=== PATIENT | male | born 1985 | race Caucasian/White ===

== ENCOUNTER 2021-03-16 19:45 | Inpatient (IN) | payer SELFPAY ==
[2021-03-22 05:24] VITALS: BMI 38.2
[2021-03-25 16:42] VITALS: BP 133/87; TEMP 98
== END 2021-03-25 15:23 | disposition home health service (06) | DRG 177 ==
LOC: ERS 19:45 → ERHOLD 23:53 → T4-B 03-17 00:24 → CCU 03-19 11:36 → T4-A 03-23 16:23
PROVIDERS: ADMIT Internal Medicine; ATTEND Internal Medicine
PROC: 8E0ZXY6 Isolation (ICD-10-PCS; principal; 2021-03-16)
PROC: XW033E5 Introduction of Remdesivir Anti-infective into Peripheral Vein, Percutaneous Approach, New Technology Group 5 (ICD-10-PCS; 2021-03-17)
DX: U07.1 COVID-19 (principal); J12.82 Pneumonia due to coronavirus disease 2019; J96.01 Acute respiratory failure with hypoxia; I48.20 Chronic atrial fibrillation, unspecified; E66.9 Obesity, unspecified; Z79.01 Long term (current) use of anticoagulants; Z79.899 Other long term (current) drug therapy; Z68.38 Body mass index [BMI] 38.0-38.9, adult
CPT/HCPCS: 36415; 71045; 71275; 80048; 80053; 80076; 81003; 82728; 84439; 84443; 84481; 85025; 85379; 86140; 93970; 96372; 96374; C9113; J0696; J1100; J1650; J1885; J2930; J3490; J7050; J8540; Q9967

== ENCOUNTER 2021-04-11 10:57 | Inpatient (IN) | payer SELFPAY ==
[2021-04-11 11:18] LABS: #Eosinphils 0.4 thou/uL (0.0-0.7); #Lymphocytes 1.7 thou/uL (1.20-3.40); #Monocytes 0.7 thou/uL (0.11-0.59); #Neutrophils 3.5 thou/uL (1.40-6.50); %Basophils 0.8 % (0.0-1.0); %Lymphocytes 26.8 % (21.0-51.0); %Monocytes 11.1 % (0.0-10.0); %Neutrophils 55.3 % (42.0-75.0); Mean Corpuscular HGB CONC 33.3 g/dL (32.0-36.0); Mean Corpuscular Hemoglobin 29.2 pg (27.0-31.0); Mean Corpuscular Volume 87.9 fL (78.0-98.0); Mean Platelet Volume 7.2 fL (7.4-10.4); Platelet Count 223 thou/uL (130-400); RBC Distribution Width 13.5 % (11.5-14.5); White Blood Cell (WBC) Count 6.4 thou/uL (4.8-10.8)
[2021-04-11 11:50] LABS: ALT (SGPT) 48 U/L (8-55); AST (SGOT) 30 U/L (5-34); Alkaline Phosphatase 112 U/L (40-110); Anion Gap 13 mmol/L (10-20); BUN (Urea Nitrogen) 11 mg/dL (8.9-20.6); Bilirubin, Total 0.9 mg/dL (0.2-1.2); Calc. Creatinine Clearance 0 mL/min (70-130); Calcium 9.2 mg/dL (7.8-10.44); Carbon Dioxide 24 mmol/L (22-29); Chloride 106 mmol/L (98-107); Glucose 91 mg/dL (70-105); Potassium 4.4 mmol/L (3.5-5.1); Sodium 139 mmol/L (136-145)
[2021-04-11] MEDS ORDERED: Digoxin 0.5 MG/2 ML AMP ONE ×2 (15:42→17:38)
[2021-04-11] MEDS ORDERED: Diltiazem 125 MG/25 ML ONE (18:56)
[2021-04-11 18:58] LABS: SARS-CoV-2 NAA Rapid Test Not Detected (NotDetected)
[2021-04-11] MEDS ORDERED: Acetaminophen 650 MG Suppository PR PRN (22:02)
[2021-04-11] MEDS ORDERED: Ondansetron PF 4 MG/2 ML Vial IVP PRN (22:02)
[2021-04-11] MEDS ORDERED: Acetaminophen 325 MG TAB PO PRN (22:02)
[2021-04-11] MEDS ORDERED: Ondansetron ODT 4 MG TAB PO PRN (22:02)
[2021-04-11] MEDS ORDERED: Apixaban 5 MG TAB PO SCH (22:15)
[2021-04-12] MEDS ORDERED: Diltiazem HCl 125 MG, Admixture Fee 1 EACH in Sodium Chloride 0.9% 100 ML IVPB SCH (00:45)
[2021-04-12 03:54] LABS: #Eosinphils 0.5 thou/uL (0.0-0.7); #Lymphocytes 1.8 thou/uL (1.20-3.40); #Monocytes 0.7 thou/uL (0.11-0.59); #Neutrophils 3.3 thou/uL (1.40-6.50); %Basophils 0.8 % (0.0-1.0); %Eosinophils 7.6 % (0.0-10.0); %Monocytes 11.6 % (0.0-10.0); Hemoglobin 13.3 g/dL (14.0-18.0); Mean Corpuscular HGB CONC 34.1 g/dL (32.0-36.0); Mean Corpuscular Hemoglobin 30.4 pg (27.0-31.0); Mean Corpuscular Volume 89.1 fL (78.0-98.0); Mean Platelet Volume 7.6 fL (7.4-10.4); Platelet Count 211 thou/uL (130-400); RBC Distribution Width 13.6 % (11.5-14.5); Red Blood Cell (RBC) Count 4.37 mill/uL (4.70-6.10); White Blood Cell (WBC) Count 6.3 thou/uL (4.8-10.8)
[2021-04-12 04:13] LABS: Anion Gap 9 mmol/L (10-20); BUN (Urea Nitrogen) 11 mg/dL (8.9-20.6); Calc. Creatinine Clearance 249 mL/min (70-130); Calcium 8.5 mg/dL (7.8-10.44); Carbon Dioxide 23 mmol/L (22-29); Chloride 107 mmol/L (98-107); Glucose 100 mg/dL (70-105); Potassium 3.9 mmol/L (3.5-5.1); Sodium 135 mmol/L (136-145)
[2021-04-12] MEDS: Apixaban 5 MG TAB PO SCH ×2 (07:42→21:15)
[2021-04-12] MEDS ORDERED: Flecainide 50 MG TAB PO SCH ×2 (13:43→13:45)
[2021-04-12] MEDS: Flecainide 50 MG TAB PO SCH (21:15)
[2021-04-13] MEDS: Apixaban 5 MG TAB PO SCH ×2 (07:32→20:51)
[2021-04-13] MEDS: Flecainide 50 MG TAB PO SCH ×2 (07:32→20:51)
[2021-04-13] MEDS ORDERED: Aspirin 81 mg Enteric Coated Tablet PO SCH (12:15)
[2021-04-14 05:21] VITALS: BMI 38.2
[2021-04-14 08:04] VITALS: BP 128/77; TEMP 97.9
[2021-04-14] MEDS: Apixaban 5 MG TAB PO SCH (08:06)
[2021-04-14] MEDS: Flecainide 50 MG TAB PO SCH (08:06)
[2021-04-14] MEDS ORDERED: Aspirin 81 mg Enteric Coated Tablet PO SCH (09:00)
== END 2021-04-14 12:20 | disposition home or self-care (01) | DRG 310 ==
LOC: ERS 10:57 → IMCU/EMU 19:20 → OBSVTOIN 23:17 → 2NO 04-13 15:02
PROVIDERS: ADMIT Internal Medicine; ATTEND Internal Medicine
DX: I48.91 Unspecified atrial fibrillation (principal); Z86.16 Personal history of COVID-19; Z79.01 Long term (current) use of anticoagulants; E66.9 Obesity, unspecified; Z68.38 Body mass index [BMI] 38.0-38.9, adult
CPT/HCPCS: 0240U; 36415; 71045; 80048; 80053; 83735; 84443; 84484; 85025; 93005; 96365; 96366; 96375; 96376; G0378; J1160

== ENCOUNTER 2023-03-30 14:40 | Emergency (ER) | payer BC, SELFPAY ==
[2023-03-30 15:33] LABS: #Basophils 0.1 thou/uL (0.0-0.2); #Eosinphils 0.3 thou/uL (0.0-0.7); #Monocytes 0.8 thou/uL (0.11-0.59); #Neutrophils 6.2 thou/uL (1.40-6.50); %Basophils 0.7 % (0.0-1.0); %Eosinophils 2.9 % (0.0-10.0); %Lymphocytes 21.9 % (21.0-51.0); %Monocytes 7.9 % (0.0-10.0); %Neutrophils 65.4 % (42.0-75.0); Hemoglobin 14.2 g/dL (14.0-18.0); Mean Corpuscular HGB CONC 33.6 g/dL (32.0-36.0); Mean Corpuscular Hemoglobin 28.6 pg (27.0-31.0); Mean Corpuscular Volume 84.9 fl (78.0-98.0); Platelet Count 310 10x3/uL (130-400); RBC Distribution Width 13.6 % (11.5-14.5); Red Blood Cell (RBC) Count 4.97 mill/uL (4.70-6.10); White Blood Cell (WBC) Count 9.5 10x3/uL (4.8-10.8)
[2023-03-30 15:57] LABS: ALT (SGPT) 47 U/L (8-55); AST (SGOT) 29 U/L (5-34); Albumin 4.8 g/dL (3.5-5.0); Alkaline Phosphatase 130 U/L (40-110); Anion Gap 17 mmol/L (10-20); BUN (Urea Nitrogen) 12 mg/dL (8.9-20.6); Bilirubin, Total 0.5 mg/dL (0.2-1.2); Calc. Creatinine Clearance 0 mL/min (70-130); Carbon Dioxide 23 mmol/L (22-29); Chloride 104 mmol/L (98-107); Estimated GFR 112; Glucose 87 mg/dL (70-105); Magnesium 2.2 mg/dL (1.6-2.6); Potassium 3.9 mmol/L (3.5-5.1); Protein, Total 7.8 g/dL (6.0-8.3); Sodium 140 mmol/L (136-145)
[2023-03-30] MEDS ORDERED: PROPOFOL 20 ML ONE (16:38)
== END 2023-03-30 18:36 | disposition home or self-care (01) ==
LOC: ERS 14:40
DX: I48.91 Unspecified atrial fibrillation (principal)
CPT/HCPCS: 71045; 80053; 83735; 85025; 92960; 93005; J2704

== ENCOUNTER 2024-01-14 19:46 | Emergency (ER) | payer BC ==
[2024-01-14] MEDS ORDERED: Ondansetron PF 4 MG/2 ML Vial ONE (20:28)
[2024-01-14] MEDS ORDERED: Aspirin Chewable 81 MG TAB ONE (20:29)
[2024-01-14] MEDS ORDERED: Enoxaparin 80 MG (0.8 mL) SYRINGE ONE (20:29)
[2024-01-14] MEDS ORDERED: Enoxaparin 30 MG (0.3 mL) SYRINGE ONE (20:29)
[2024-01-14 20:30] LABS: #Basophils 0.04 10x3/uL (0.0-0.2); %Basophils 0.4 % (0.0-1.0); %Lymphocytes 25.6 % (21.0-51.0); %Monocytes 7.7 % (0.0-10.0); Hematocrit 43.3 % (42.0-52.0); Hemoglobin 14.7 g/dL (14.0-18.0); Mean Corpuscular HGB CONC 33.9 g/dL (32.0-36.0); Mean Corpuscular Hemoglobin 29.3 pg (27.0-31.0); Mean Corpuscular Volume 86.4 fL (78.0-98.0); Platelet Count 319 10x3/uL (130-400); RBC Distribution Width 13.2 % (11.5-14.5); Red Blood Cell (RBC) Count 5.01 mill/uL (4.70-6.10)
[2024-01-14 20:47] LABS: ALT (SGPT) 29 U/L (8-55); AST (SGOT) 32 U/L (5-34); Albumin 4.5 g/dL (3.5-5.0); Alkaline Phosphatase 106 U/L (40-110); Anion Gap 15 mmol/L (10-20); BUN (Urea Nitrogen) 16 mg/dL (8.9-20.6); Calc. Creatinine Clearance 0 mL/min (70-130); Calcium 9.4 mg/dL (7.8-10.44); Carbon Dioxide 23 mmol/L (22-29); Chloride 109 mmol/L (98-107); Estimated GFR 114; Globulin 3.1 g/dL (2.4-3.5); Glucose 90 mg/dL (70-105); Potassium 3.6 mmol/L (3.5-5.1); Protein, Total 7.6 g/dL (6.0-8.3); Sodium 143 mmol/L (136-145)
[2024-01-14 20:52] LABS: Troponin I Less than 0.010 ng/mL (< 0.028)
[2024-01-14] MEDS ORDERED: PROPOFOL 20 ML ONE (20:55)
[2024-01-14 20:59] LABS: INR-International Normal Ratio 1.2; Prothrombin Time 14.8 sec (12.0-14.7)
[2024-01-14 21:00] LABS: PTT 32.6 sec (22.9-36.1)
== END 2024-01-14 22:45 | disposition home or self-care (01) ==
LOC: ERS 19:46
DX: I48.91 Unspecified atrial fibrillation (principal); Z55.0 Illiteracy and low-level literacy
CPT/HCPCS: 71045; 80053; 84443; 84484; 85025; 85610; 85730; 92950; 93005; 94760; 96361; 96372; 96374; 96375; 99152; J1650; J2405; J2704